=== PATIENT | female | born 1955 | race Caucasian/White ===

== ENCOUNTER 2016-09-10 14:39 | Emergency (ER) | payer OTHER ==
[2016-09-10 15:11] VITALS: BP 129/67; PULSE 78; RESP 16; TEMP 98.1; O2SAT 98
--- NOTE | 2016-09-10 15:22 | UCPHY ---
H & P Patient Type: Established Chief Complaint Nursing Narrative: Pt. states os pruitic last noc, this am erythema and feels as though something is in there. Time Seen by Provider: 09/10/16 15:16 HPI/ROS: CHIEF COMPLAINT: Eye irritation HISTORY OF PRESENT ILLNESS: The patient is a 61-year-old female who comes to the Urgent Care complaining of pinkeye. She states that last night she began to notice some irritation. She thought that maybe she had a foreign body. She tried washing it with fluids with no improvement. Today she noticed that her conjunctiva was red and irritated. No discharge. It involves her left eye only. Her vision is not changed. She does were glasses but not contacts. REVIEW OF SYSTEMS: Constitutional: denies: chills, fever, recent illness, recent injury EENTM: See HPI Respiratory: denies: cough, shortness of breath Cardiac: denies: chest pain, irregular heart rate, lightheadedness, palpitations Gastrointestinal/Abdominal: denies: abdominal pain, diarrhea, nausea, vomiting, blood streaked stools Genitourinary: denies: dysuria, frequency, hematuria, pain Musculoskeletal: denies: joint pain, muscle pain Skin: denies: lesions, rash, jaundice, bruising Neurological: denies: headache, numbness, paresthesia, tingling, dizziness, weakness Hematologic/Lymphatic: denies: blood clots, easy bleeding, easy bruising Immunologic/allergic: denies: HIV/AIDS, transplant EXAM: GENERAL: Well-appearing, well-nourished and in no acute distress. HEAD: Atraumatic, normocephalic. EYES: Pupils equal round and reactive to light, extraocular movements intact, left conjunctiva injected with cobblestoning eyelid ENT: TMs normal, nares patent, oropharynx clear without exudates. Moist mucous membranes. NECK: Normal range of motion, supple without lymphadenopathy or JVD. LUNGS: Breath sounds clear to auscultation bilaterally and equal. No wheezes rales or rhonchi. HEART: Regular rate and rhythm without murmurs, rubs or gallops. ABDOMEN: Soft, nontender, normoactive bowel sounds. No guarding, no rebound. No masses appreciated. BACK: No CVA tenderness, no spinal tenderness, step-offs or deformities EXTREMITIES: Normal range of motion, no pitting or edema. No clubbing or cyanosis. NEUROLOGICAL: Cranial nerves II through XII grossly intact. Normal speech, normal gait. 5/5 strength, normal movement in all extremities, normal sensation PSYCH: Normal mood, normal affect. SKIN: Warm, dry, normal turgor, no visible rashes or lesions. Source: Patient Exam Limitations: No limitations - Medical/Surgical History Hx Asthma: No Hx Chronic Respiratory Disease: No Hx Diabetes: No Hx Cardiac Disease: No Hx Renal Disease: No Hx Cirrhosis: No Hx Alcoholism: No Hx HIV/AIDS: No Hx Splenectomy or Spleen Trauma: No Other PMH: glaucoma,urinary incontinence,kidney stones. Surg-breast biopsies, stapes-ear and blepherplasty - Family History Significant Family History: No pertinent family hx - Social History Smoking Status: Never smoked Alcohol Use: Sober Drug Use: None Constitutional: Initial Vital Signs Temperature (C) 36.7 C 09/10/16 15:00 Heart Rate 78 09/10/16 15:00 Respiratory Rate 16 09/10/16 15:00 Blood Pressure 129/67 H 09/10/16 15:00 O2 Sat (%) 98 09/10/16 15:00 O2 Delivery Mode Room Air Allergies/Adverse Reactions: metronidazole [From Flagyl] Allergy (Intermediate, Verified 09/10/16 15:03) Metronidazole HCl [From Flagyl] Allergy (Intermediate, Verified 09/10/16 15:03) Sulfa (Sulfonamide Antibiotics) Allergy (Intermediate, Verified 09/10/16 15:03) Fever sulfamethoxazole [From Bactrim] Allergy (Verified 09/10/16 15:03) trimethoprim [From Bactrim] Allergy (Verified 09/10/16 15:03) Home Medications: Medication Instructions Recorded Combigan Eye Drops 06/24/13 Myrbetriq 09/10/16 Ofloxacin 0.3% [Ocuflox 0.3%] 2 drops OP QID #1 opht.btl 09/10/16 Travatan Z 09/10/16 Medical Decision Making ED Course/Re-evaluation: I will Start the patient on Ocuflox and have her follow up with Ophthalmology. She understands and agrees with this plan. She declines further workup or treatment at this time. We discussed indications for returning to the emergency department. Differential Diagnosis: Partial list of the Differential diagnosis considered include but were not limited to; conjunctivitis, viral conjunctivitis allergy, foreign body and although unlikely based on the history and physical exam, I also considered glaucoma, iritis, retinal detachment, TIA. I discussed these differential diagnoses and the plan with the patient as well as the usual and expected course. The patient understands that the diagnosis is provisional and that in medicine we are not always correct and that further workup is often warranted. Usual and customary warnings were given. All of the patient's questions were answered. The patient was instructed to return to the emergency department should the symptoms at all worsen or return, otherwise to followup with the physician as we discussed. Departure - Departure Disposition: Home, Routine, Self-Care Clinical Impression: Conjunctivitis Qualifiers: Conjunctivitis type: acute Acute conjunctivitis type: unspecified Laterality: left Qualified Code(s): H10.32 - Unspecified acute conjunctivitis, left eye Condition: Good Instructions: Conjunctivitis (ED) Referrals: Doctor Not,On Staff, MD [Primary Care Provider] - As per Instructions Parth Leavitt MD [Medical Doctor] - As per Instructions Prescriptions: Ofloxacin 0.3% [Ocuflox 0.3%] 2 drops OP QID #1 opht.btl - PQRS PQRS Measurement: 134: Depression screening and followup, PRIME MD-PHQ2 (12 years and older) Over the last 2 weeks, how often have you been bothered by any of the following problems? 1. Feeling down, depressed, or hopeless? 2. Little interest or pleasure in doing things? Patient answered no to both 1 and 2 130: Documentation of medications. Reviewed all patient medications, doses, route and frequency. 226: Do you smoke? No. 47: 65 and older: Advanced care planning. Patient designates surrogate decision maker as spouse . Patient has advanced directive. 51: 18 years old and older with diagnosis of COPD, spirometry performance. Spirometry not performed; equipment not available. 52: 18 years old and older with COPD and symptoms of COPD or FEV1<60% predicted prescribed a B Agonist. Not applicable
== END 2016-09-10 16:09 | disposition home or self-care (01) ==
LOC: CED 14:39
DX: H10.32 Unspecified acute conjunctivitis, left eye (principal); H40.9 Unspecified glaucoma
CPT/HCPCS: G0463-PO

== ENCOUNTER → 2017-03-26 | Outpatient (CLI) | payer OTHER | LOC: FIMAGING 07:46 | PROVIDERS: ATTEND Physician Assistant | DX: Z12.31 Encounter for screening mammogram for malignant neoplasm of breast (principal); Z80.3 Family history of malignant neoplasm of breast | CPT/HCPCS: G0202 ==

== ENCOUNTER → 2017-06-11 | Outpatient (CLI) | payer OTHER | LOC: FIMAGING 14:55 | PROVIDERS: ATTEND Physician Assistant | DX: M85.80 Other specified disorders of bone density and structure, unspecified site (principal) ==

== ENCOUNTER → 2018-07-02 | Outpatient (CLI) | payer OTHER | LOC: FIMAGING 09:59 | PROVIDERS: ATTEND Physician Assistant | DX: Z12.31 Encounter for screening mammogram for malignant neoplasm of breast (principal); Z80.3 Family history of malignant neoplasm of breast ==

== ENCOUNTER → 2018-08-18 | Outpatient (CLI) | payer OTHER | LOC: FIMAGING 08:59 | PROVIDERS: ATTEND Physician Assistant | DX: M81.0 Age-related osteoporosis without current pathological fracture (principal) ==